=== PATIENT | female | born 1970 | race Caucasian/White ===

== ENCOUNTER 2023-09-24 09:19 | Emergency (ER) | payer OTHER, SELFPAY ==
[2023-09-24 09:35] VITALS: BP 131/89
[2023-09-24 09:51] VITALS: BMI 34.6
--- NOTE | 2023-09-24 10:37 | EDRN ---
Tracie MORENO in room w/pt at this time.
[2023-09-24 10:50] VITALS: BP 121/85
--- NOTE | 2023-09-24 11:18 | ED.GENMED ---
History of Present Illness
General
Chief Complaint: Head Injury
Time Seen by Provider: 09/24/23 10:17
Nursing documentation reviewed up to this point in time: agreed with
History of Present Illness
History of Present Illness:
Patient is a 53-year-old female who presents to the ER for evaluation. Patient reports she had head injury in the middle of July and has had headaches and nausea since. She fell out of bed onto hardwood floor she was not sure if she lost
consciousness or not. She had seen her family doctor and they did order CAT scan however she never had it done. She presents today with continued complaints of intermittent headaches and nausea and neck pain. She feels generally weak all over she
has difficulty eating because of her symptoms. She is not on blood thinners.
Past History
Past History
ED Past Medical History: Psychiatric
Social History
Personal:
Review of Systems
Review of Systems
Allergies reviewed?: Yes
All Other Systems: ROS reviewed and negative except as documented in HPI and ROS
Constitutional: Reports no symptoms
Respiratory: Reports no symptoms
Cardiac: Reports no symptoms
ABD/GI: Reports nausea and vomiting
: Reports no symptoms
Musculoskeletal: Reports neck pain
Skin: Reports no symptoms
Neurological: Reports headache
Hematologic/Lymphatic: Reports no symptoms
Psychiatric: Reports no symptoms
Phy Exam
General Physical Exam
General Presentation: no apparent distress
General age: appears stated age
General Skin: warm and dry
General Habitus: normal
General Mental: alert
General Hydration: appears well hydrated
Eye Exam
Eye Exam: PERRL and EOMI
Eye Exam General: PERRL: bilateral and EOM intact: bilateral
Pupil Exam: Bilateral: round and reactive
Neurological Exam
Neurological Exam: alert and oriented x3
[place] Coma Scale
Eye Opening: Spontaneous
Verbal Response: Oriented
Motor Response: Obeys Commands
GCS Total Score: 15
Cerebellar
Cerebellar Function: normal finger to nose
Musculoskeletal Exam
Musculoskeletal Exam: other (Tender throughout the paraspinal muscles of cervical spine no bony C-spine tenderness)
Skin Exam
Skin Exam: normal color and warm/dry
Psychiatric Exam
Psychiatric Exam: normal mood/affect
Course
Orders/Labs/Results
Orders:
Orders
09/24/23 10:38
CT Cervical Spine W/o Iv Contr Urgent
Comment:
Reason For Exam: trauma
CT Head W/o Iv Contrast Urgent
Comment:
Reason For Exam: trauma
09/24/23 13:21
Acetaminophen [Tylenol] 1,000 mg PO NOW STA
Vital Signs
Initial and Last Documented VS:
Initial Vital Signs
Temp Pulse Resp BP Pulse Ox
99 F 95 18 131/89 97
09/24/23 09:35 09/24/23 09:35 09/24/23 09:35 09/24/23 09:35 09/24/23 09:35
Last Documented Vital Signs
Temp Pulse Resp BP Pulse Ox
99 F 73 16 128/86 97
09/24/23 09:35 09/24/23 13:24 09/24/23 13:24 09/24/23 13:24 09/24/23 13:24
MDM/Problems Addressed
Differential Diagnosis Includes:
Not limited to postconcussive syndrome, concussion
MDM/Problems Addressed:
Patient had head injury in July and ever since then has had intermittent headaches, neck pain nausea. Vomiting. Patient presents nontoxic with a normal neurologic exam CT head and cervical spine negative. Patient likely may have symptoms
consistent with postconcussive syndrome will DC with outpatient neurology. She is no acute distress here ambulatory with a steady gait. As requested will DC with small muscle relaxer for neck pain and Zofran as needed for nausea
*Radiology
Radiology exam reviewed: other (reviewed with DR Garcia)
*Critical Care Note
Total Time (30-74mins, 75-104mins- exclusive of procedures): Not Applicable
ED Attending Note
-
Portions of this chart may have been created with voice recognition software.� Occasional wrong word or��sound alike� substitutions may have occurred due to the inherent limitations of voice recognition software.
Discharge Plan
Departure
Patient Disposition: Home (Routine Discharge)
Date of Disposition: 09/24/23
Time of Disposition: 14:29
Patient with high blood pressure during this ER visit?: Yes
Condition: Fair
Covid-19: Not Applicable
Discharge Problem:
Head injury
Instructions: Contusion (DC)
Prescriptions:
New
ondansetron 4 mg tablet,disintegrating
4 mg PO TID PRN (Reason: nausea and vomiting) Qty: 10 0RF
cyclobenzaprine 10 mg tablet
10 mg PO TID PRN (Reason: muscle spasm) Qty: 10 0RF
No Action
oxycodone-acetaminophen 5 MG/325 MG tablet
1 tab PO Q4HPRN PRN (Reason: pain) Qty: 20 0RF
Referrals:
Bhupinder Michel MD [Active] -
Parth Kim DO [Family Provider] -
Activity Restrictions/Additional Instructions:
As discussed you may alternate between Tylenol/ Motrin for pain and symptoms. Follow-up with neurology as soon as possible and return if any worsening of symptoms.
Incidentally there is a possible thyroid nodule that will need outpatient follow-up with. Please follow-up with your family doctor for this.
it is recommended additional thyroid imaging such as a thyroid ultrasound be done.
A muscle laxer was sent to your pharmacy along with nausea medicine. Take as directed.
Interventions
Interventions:
*Risk Screen - Suicide Last Done: 09/24/23 09:35
*General Assessment Last Done: 09/24/23 09:35
*Neglect/Abuse Screening Last Done: 09/24/23 09:35
ED- Fall Risk Assessment Last Done: 09/24/23 09:49
*ED COVID-19 Vaccine History Last Done: 09/24/23 09:48
ED- Neurological Assessment Last Done: 09/24/23 09:49
ED-Skin Assessment Last Done: 09/24/23 09:49
Discharge Date and Time
Print Language: SINHALA
[2023-09-24 12:22] VITALS: BP 129/86
--- NOTE | 2023-09-24 12:24 | EDRN ---
Pt OOB to [facility] at this time.
[2023-09-24 13:24] VITALS: BP 128/86
[2023-09-24] MEDS: TYLENOL 1000 MG PO (13:26)
[2023-09-24 15:15] VITALS: BP 137/86
== END 2023-09-24 15:15 | disposition home or self-care (01) ==
LOC: EMR 09:19
PROVIDERS: EMERGENCY PHYSICIAN Emergency Medicine; FAMILY PHYSICIAN Internal Medicine
DX: S09.90XA Unspecified injury of head, initial encounter (principal); G44.309 Post-traumatic headache, unspecified, not intractable; M54.2 Cervicalgia; R53.1 Weakness; R11.2 Nausea with vomiting, unspecified; R42 Dizziness and giddiness; W06.XXXA Fall from bed, initial encounter; R03.0 Elevated blood-pressure reading, without diagnosis of hypertension
CPT/HCPCS: 99284; 70450; 72125

== ENCOUNTER 2024-07-17 06:35 | Day surgery (SDC) | payer OTHER, SELFPAY | END 2024-07-17 16:12 | disposition home or self-care (01) | LOC: GI 06:35 | PROVIDERS: ATTENDING PHYSICIAN Internal Medicine Gastroenterology | DX: Z12.11 Encounter for screening for malignant neoplasm of colon (principal); K57.30 Diverticulosis of large intestine without perforation or abscess without bleeding; R11.2 Nausea with vomiting, unspecified; K44.9 Diaphragmatic hernia without obstruction or gangrene; K22.89 Other specified disease of esophagus; K31.89 Other diseases of stomach and duodenum; K21.9 Gastro-esophageal reflux disease without esophagitis; D12.2 Benign neoplasm of ascending colon; K62.1 Rectal polyp | CPT/HCPCS: 45380; 43239; 88305 ==

== ENCOUNTER 2024-09-05 06:22 | Day surgery (SDC) | payer OTHER, SELFPAY ==
[2024-09-05 11:15] VITALS: BMI 28.8
[2024-09-05 11:16] VITALS: BP 93/55
[2024-09-05 12:30] VITALS: BP 94/68
[2024-09-05 12:47] VITALS: BP 89/57
== END 2024-09-05 13:03 | disposition home or self-care (01) ==
LOC: SDS 06:22
PROVIDERS: ATTENDING PHYSICIAN Internal Medicine Gastroenterology
DX: K31.89 Other diseases of stomach and duodenum (principal); K31.7 Polyp of stomach and duodenum
CPT/HCPCS: 43237